=== PATIENT | female | born 1975 ===

== ENCOUNTER 2019-07-31 13:45 | Emergency (ER) | payer OTHER ==
[~2019-07-31] VITALS: Ht 157.5 cm; Wt 54.5 kg
[2019-07-31 16:54] VITALS: BP 116/74
== END 2019-07-31 18:01 | disposition home or self-care (01) ==
LOC: EMS 13:49
DX: S90.31XA Contusion of right foot, initial encounter (principal); X58.XXXA Exposure to other specified factors, initial encounter; Y93.89 Activity, other specified; Y92.89 Other specified places as the place of occurrence of the external cause; Y99.8 Other external cause status